=== PATIENT | female | born 1965 | race Caucasian/White ===

== ENCOUNTER 2017-10-31 13:27 | Emergency (ER) | payer OTHER ==
[~2017-10-31] VITALS: Ht 154.9 cm; Wt 68.0 kg
[2017-10-31 13:32] VITALS: BP 155/83
[2017-10-31] MEDS ORDERED: KETOROLAC TROMETH 60MG/2ML VIAL IM ONE (13:45)
[2017-10-31] MEDS ORDERED: HYDROcodone-ACET 10/325MG TAB PO ONE (14:30)
[2017-10-31] MEDS ORDERED: cefTRIAXone SOD 1,000 MG VL IM ONE (14:30)
[2017-10-31] MEDS ORDERED: MORPHINE SULFATE 4 MG/ML SYR/VIAL IM ONE (14:30)
== END 2017-10-31 15:12 | disposition home or self-care (01) ==
LOC: ER 13:30
DX: S63.254A Unspecified dislocation of right ring finger, initial encounter (principal); I10 Essential (primary) hypertension; Z90.49 Acquired absence of other specified parts of digestive tract; Z88.1 Allergy status to other antibiotic agents; Z90.710 Acquired absence of both cervix and uterus; X58.XXXA Exposure to other specified factors, initial encounter; Y93.89 Activity, other specified; Y92.89 Other specified places as the place of occurrence of the external cause; Y99.8 Other external cause status
CPT/HCPCS: 73130; 73140; 96372; 99284; J0696; J1885; J2270